=== PATIENT | male | born 1995 | race Asian ===

== ENCOUNTER 2019-05-29 23:45 | Emergency (ER) | payer BC ==
[~2019-05-29] VITALS: Ht 172.7 cm; Wt 86.4 kg
[2019-05-29 23:52] VITALS: BP 157/97
== END 2019-05-30 00:10 | disposition short-term general hospital (02) ==
LOC: EMS 23:45
DX: S21.112A Laceration without foreign body of left front wall of thorax without penetration into thoracic cavity, initial encounter (principal); R45.851 Suicidal ideations; F32.9 Major depressive disorder, single episode, unspecified; X78.1XXA Intentional self-harm by knife, initial encounter; Y93.89 Activity, other specified; Y92.89 Other specified places as the place of occurrence of the external cause; Y99.8 Other external cause status
CPT/HCPCS: 99291